=== PATIENT | male | born 1985 | race Caucasian/White ===

== ENCOUNTER → 2016-11-13 | Outpatient (CLI) | payer OTHER ==
--- NOTE | 2016-11-13 11:01 | KCIC ---
INDICATION: Left-sided low back pain, worsening in the last few months. TECHNIQUE: Sagittal T1, sagittal T2, sagittal STIR, axial T1, and axial T2 sequences are provided. Comparison is made to radiographs from April 24, 2009. FINDINGS: There is no malalignment. There is no marrow edema. There is no worrisome marrow lesion. There is disc desiccation which is mild at what is considered L5-S1 and between the S1 and S2 segments. Patient again appears to have transitional type anatomy. For the purposes of today's study, transitional vertebral body is considered a partially lumbarized S1 segment with rudimentary disc at S1-S2. Conus medullaris is therefore considered to terminate at the inferior endplate of L1. This numbering system also assumes 5 lumbar type vertebral bodies. Degenerative findings by individual level are as follows: T12-L1 through L3-L4: There is no canal or foraminal compromise. L4-L5: Minimal disc bulge and facet hypertrophy are noted with minimal foraminal narrowing. L5-S1: There is a disc osteophyte complex and facet hypertrophy with mild foraminal narrowing. IMPRESSION: 1. Mild degenerative disc disease and facet hypertrophy without any canal stenosis. There is mild foraminal narrowing at L5-S1. 2. Transitional type anatomy, was considered a partially lumbarized S1 segment for the purposes of today's exam. Electronically signed by: Josias Valverde MD (11/13/2016 10:57 AM) [facility]
== END | disposition home or self-care (01) ==
LOC: KCIC MRI 10:07
PROVIDERS: ATTEND Physician Assistant Medical
DX: M51.36 Other intervertebral disc degeneration, lumbar region (principal)
CPT/HCPCS: 72148

== ENCOUNTER → 2016-11-29 | Outpatient (CLI) | payer OTHER ==
[~2016-11-29] MED LIST: CYCL5TAB PO; FINA5TAB4 PO; IOHEXOL 180 MG/ML 10 ML VIAL. ONE; methylPREDNISolone ACETATE 40 MG/ML VIAL. ONE; methylPREDNISolone ACETATE 80 MG/ML VIAL. ONE
--- NOTE | 2016-11-29 16:14 | PAIN ---
DATE OF SERVICE: 11/29/2016 INITIAL CONSULTATION FOR PAIN CLINIC DATE OF SERVICE: 11/29/2016 CHIEF COMPLAINT: Low back and left lower extremity pain. HISTORY OF PRESENT ILLNESS: This is a 31-year-old male who presents with history of pain across the low back and left gluteus and thigh for about 2 years on and off, getting worse with time gradually. The patient reports it is constantly sharp, shooting, changes during the day, worse in the morning, but better as he gets up and moves around, but then worse at night again. It has been disturbing his sleep 2-3 times at night, it has not affected his bowel or bladder control or his ability to walk, not using any assistive devices. The patient had some trigger point injections in 10/2016, which helped initially for a few days and exercise seemed to help as well. He is doing this as well as some inversion table therapy on his own at home. The patient has been taking some cyclobenzaprine, which helps as well, but does cause some drowsiness. The patient reports his disability rating from 0-10 with 10 being the worst, as 7 with family and home responsibilities and occupation and life support activities, 6 with recreation and self-care, 3 with social activity, 0 with sexual behavior. The patient did have MRI scan of the lumbar spine showing mild degenerative disk disease and facet hypertrophy without any canal stenosis, minimal mild foraminal narrowing at L5-S1, L4-L5 shows minimal disk bulging as well with some facet hypertrophy also. The patient reports pain is worse with standing and walking, better with sitting, better with riding in a car, also better with lying down. PAST MEDICAL HISTORY: Significant for only right knee surgery. Otherwise, the patient has been in very good health. No significant health history otherwise. CURRENT MEDICATIONS: Include cyclobenzaprine and finasteride. ALLERGIES: The patient has no known drug allergies. FAMILY HISTORY: Significant for hypertension only. SOCIAL HISTORY: The patient does not smoke. 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 REVIEW OF SYSTEMS: The patient's review of systems is positive for those items mentioned in history of present illness. All systems reviewed and otherwise negative. It is complete, full and well documented on the patient's chart. PHYSICAL EXAMINATION: VITAL SIGNS: Today, blood pressure 129/83, pulse 66, respirations 16, temperature 97.7 degrees Fahrenheit, height 6 feet 2 inches, weighs 230 pounds. GENERAL: The patient is awake, alert, oriented, appropriate, very pleasant demeanor. HEENT: Head shows normocephalic, atraumatic. Extraocular movements are intact and symmetrical. Oral cavity, mucous membranes are moist and pink. Dentition is intact. NECK: Shows anterior throat supple without palpable lymphadenopathy noted. Swallow reflex is symmetrical. CHEST: Shows normal on inspection. Breath sounds are clear to auscultation bilaterally. HEART: Shows S1 and S2 clear. ABDOMEN: Soft, nontender, nondistended. No palpable organomegaly. No rebound or guarding demonstrated. BACK: Shows spine grossly midline. Normal appearing thoracic kyphosis, lumbar lordotic curvature and cervical lordotic curvature. The patient's lumbar paraspinous muscle shows symmetrical on inspection with palpation shows only very mild tenderness with deep palpation in the lower lumbar distribution, slightly more on the left than the right, but without atrophy, hypertrophy, no trigger points, no radiation of pain, no tenderness over the spinous processes, sacrum or sacroiliac regions. The patient has full rotational motion both laterally greater than 10 degrees right and left as well as extension greater than 10 degrees, forward flexion 45 degrees without pain reported. Lower extremities show deep tendon reflexes 2+ in the patellar and 1+ tendo calcaneus tendons are symmetrical. Motor exam is strong with 5/5 dorsiflexion, extension, quadriceps and hamstring flexion. Peripheral pulses are 2+ posterior tibial and dorsalis pedis pulses. No peripheral edema is noted. No clubbing, no cyanosis. Lower extremities are warm and dry to touch, equal in color and appearance. Straight leg raise is negative for reproduction of radicular symptoms as is Gaenslen and Cipriano maneuvers are negative bilaterally. The patient is able to stand, stand on his toes without difficulty or loss of balance, is walking with a normal appearing gait, not using any assistive devices. IMPRESSION: 1. This is a 31-year-old male with about a 2-year history of increasing pain in low back, into the left gluteus and posterior aspect of the upper thigh. 2. MRI scan of lumbar spine as noted. 3. Previous knee surgery. PLAN: Options were discussed with the patient including conservative medical management, physical therapy, interventional techniques and he would like to pursue interventional techniques. We discussed a lumbar epidural steroid injection using description as well as anatomical models to describe the procedure. Risks were then discussed including, but not limited to bleeding, infection, possibility of epidural hematoma and subsequent neurologic compromise, dural puncture, headaches, spinal cord and/or nerve damage, side effects of steroid medications and poor results regarding pain control. The patient understands and wishes to proceed. The patient will return to clinic in approximately 2 weeks for followup. He was counseled on return appointment, activity level and side effects to be aware of. DIAGNOSIS: Lumbar radiculopathy with lumbar degenerative disk disease. PROCEDURE: Lumbar epidural steroid injection in translaminar approach at the L5-S1 level using C-arm fluoroscopic guidance under sterile prep and drape using local anesthetic. Medication injected a total of 120 mg Depo-Medrol plus 10 mL preservative-free normal saline and 2 mL Isovue for contrast. CONDITION AT DISCHARGE: Stable. The patient tolerated procedure well and had no complications. JESS CHANEL MD DR: PATRICIA/kori JOB#: [id number] / [id number] KATIE Villafuerte MD
== END | disposition home or self-care (01) ==
LOC: PNCL 07:36
PROVIDERS: ATTEND Anesthesiology
DX: M51.16 Intervertebral disc disorders with radiculopathy, lumbar region (principal)
CPT/HCPCS: 62323; J1030; J1040

== ENCOUNTER → 2016-12-13 | Outpatient (CLI) | payer OTHER ==
--- NOTE | 2016-12-13 10:32 | PN ---
DATE: 12/13/2016 PROGRESS NOTE FOR PAIN CLINIC DIAGNOSES: Lumbar radiculopathy with lumbar degenerative disk disease. HISTORY OF PRESENT ILLNESS: The patient is a 31-year-old male who returns for followup status post lumbar epidural steroid injection x 1. The patient reports approximately 50% improvement overall in his low back and left lower extremity pain. Reports the pain is still present, but did very well until about the last 4-5 days, it has been increasing again, near to baseline, but not quite to baseline. The patient reports the pain is an 8 on a scale of 10, average about 6 and is currently a 3. The patient reports it is a sharp, shooting, radiating, constant pain in low back and bilateral lower extremities, mostly on the left side posterior gluteus and posterior thigh, but some in the right posterior gluteus as well, but only intermittently. The patient reports it does not wake him up from sleep very often, maybe once in the past month. He sleeps about 5-6 hours at a time without difficulty. No new motor or sensory deficits. The patient reports no bowel or bladder incontinence or other complaints. PHYSICAL EXAMINATION: VITAL SIGNS: The patient's blood pressure is 135/80, pulse 63, respirations are 16 and temperature 98.0 degrees Fahrenheit. Weight is 221 pounds. GENERAL: The patient is awake, alert, oriented, appropriate, very pleasant demeanor. HEENT: Exam shows normocephalic, atraumatic. Extraocular movements are intact and symmetrical. Oral cavity, mucous membranes are moist and pink. Dentition is intact. NECK: Shows anterior throat supple, without palpable lymphadenopathy noted. Swallow reflex is symmetrical. CHEST: Shows normal on inspection. Breath sounds clear to auscultation bilaterally. HEART: Shows S1 and S2 clear. ABDOMEN: Soft, nontender and nondistended. No palpable organomegaly is noted. No rebound or guarding demonstrated. BACK: Shows spine grossly midline. Normal-appearing thoracic kyphosis and lumbar lordotic curvature. Lumbar paraspinous musculature shows symmetrical on inspection. On palpation, it shows some moderate tenderness with palpation bilaterally, but only diffusely without atrophy or hypertrophy, without radiation. No tenderness over the sacrum or sacroiliac regions. LOWER EXTREMITIES: Show deep tendon reflexes at 2+ in the patellar, 1+ tendo-calcaneus tendons are equal. Motor exam is strong with 5/5 dorsiflexion, extension, quadriceps and hamstring flexion. Peripheral pulses are 2+ posterior tibial and no edema. Options were discussed with the patient. The patient's old chart was reviewed as his current medication regimen updated. Current review of systems updated today as well and we will proceed with a second in the series of lumbar epidural steroid injection with fluoroscopic guidance. Risks were again discussed including, but not limited to, bleeding, infection, possibility of epidural hematoma, subsequent neurologic compromise, dural puncture, headaches, spinal cord and/or nerve damage, side effects of steroid medication and poor results regarding pain control. The patient understands and wishes to proceed. The patient will return to clinic in approximately 2 weeks for followup, was counseled on return appointment, activity level and side effects to be aware of. DIAGNOSES: Lumbar radiculopathy with lumbar degenerative disk disease. PROCEDURE: Lumbar epidural steroid injection in translaminar approach at the L5-S1 level using C-arm fluoroscopic guidance under sterile prep and drape using local anesthetic. MEDICATION INJECTED: A total of 120 mg Depo-Medrol plus 10 mL of preservative-free normal saline and 2 mL of Isovue for contrast. CONDITION AT DISCHARGE: Stable. The patient tolerated the procedure well, had no complications. JESS CHANEL MD DR: PATRICIA/kori JOB#: [id number] / [id number]
== END | disposition home or self-care (01) ==
LOC: PNCL 08:51
PROVIDERS: ATTEND Anesthesiology
DX: M51.16 Intervertebral disc disorders with radiculopathy, lumbar region (principal)
CPT/HCPCS: 62323; J1030; J1040

== ENCOUNTER → 2017-02-18 | Outpatient (CLI) | payer OTHER ==
[~2017-02-18] MED LIST changes: -IOHEXOL 180 MG/ML 10 ML VIAL. ONE; -methylPREDNISolone ACETATE 40 MG/ML VIAL. ONE; -methylPREDNISolone ACETATE 80 MG/ML VIAL. ONE
--- NOTE | 2017-02-18 08:58 | PAIN ---
DATE OF SERVICE: 02/18/2017 DATE OF SERVICE: 02/18/2017 DIAGNOSES: Lumbar spondylosis and lumbosacral spondylosis with lumbar degenerative disk disease. HISTORY OF PRESENT ILLNESS: The patient is a 31-year-old male who returns for followup status post lumbar epidural steroid injections x 2 with about 50% improvement, but only short lived for about 2 weeks. The patient reports the pain has become more just in his back, more limited to his back. He has recently had a myelogram as well as CT scan with followup showing mild degenerative disk disease with mild foraminal narrowing at L5-S1 and transitional vertebrae at a partially lumbarized S1 as well with anterolisthesis at S1-S2 with the supine position. Left sided pseudoarthrosis to the sacrum as well, bilateral S1 pars defects at the same level with moderately bilaterally, severe facet arthropathy, moderate right foraminal narrowing, mild degenerative retrolisthesis at L5-S1 can lead to moderate bilateral foraminal narrowing exaggerated due to mild facet arthropathy and a [id number] compression of the bilateral L5 nerve roots within the foramina. The patient reports still significant pain, slightly worse on the left than the right, but present bilaterally in the low back itself without significant radiation into the gluteus or posterior thighs at this time. The patient reports it is a stabbing, aching, sharp pain that can be worse with activity, standing, walking, changing positions, waking her from sleep occasionally, but not every night, better with lying down, generally worse with sitting, standing, walking, changing positions, bending forward. Extension of the spine causes the pain to be much more noticeable especially on the left. The patient reports pain as a 9 on a scale of 10 at its worst, is an 8 on average, 4 at its least, and is a 5 today. The patient reports it is mostly dull and stabbing this morning. PHYSICAL EXAMINATION: VITAL SIGNS: Today, the patient's blood pressure is 128/71, pulse 63, respirations 18, temperature is 97.8 degrees Fahrenheit. Weight is 222 pounds. GENERAL: The patient is awake, alert, oriented, appropriate, very pleasant demeanor. HEENT: Head shows normocephalic, atraumatic. Extraocular movements are intact and symmetrical. Oral cavity, mucous membranes are moist and pink. Dentition is intact. NECK: Shows anterior throat supple without palpable lymphadenopathy noted. Swallow reflex is symmetrical. CHEST: Shows normal on inspection. Breath sounds clear to auscultation bilaterally. HEART: Shows S1 and S2 clear. No murmurs auscultated. ABDOMEN: Soft, nontender, nondistended. No palpable organomegaly is noted. No rebound or guarding demonstrated. BACK: Shows spine grossly in midline. Normal appearing thoracic kyphosis and lumbar lordotic curvature. No previous bruises, lesions, rashes or scars are noted. Lumbar paraspinous musculature shows symmetrical on inspection, with palpation, there is some mild tenderness with palpation in the lower lumbar distribution only diffusely, slightly more on the left than the right. No tenderness over the sacrum or sacroiliac regions, however, the patient has good rotational motion both laterally as well as extension and flexion with some tenderness reported with extension in the low back itself, more on the left side, but present bilaterally, is better with forward flexion. Right and left lateral rotation shows mild tenderness bilaterally at 10 degrees rotation. LOWER EXTREMITIES: Show deep tendon reflexes 2+ in the patellar, 1+ tendo-calcaneus tendons are equal. Motor exam is strong with 5/5 dorsiflexion, extension, quadriceps and hamstring flexion. No peripheral edema is noted. Peripheral pulses are 1+ in the posterior tibial distribution. PLAN: Options were discussed with the patient and the patient's old chart was reviewed as his current medication regimen updated. Current review of systems updated today as well. We will preauthorize the patient for bilateral facet joint injections at the L5-S1 and S1-S2 levels as he has transitional anatomy with anterolisthesis and pars defect at these levels. Significant pain in the low back itself, worse with extension and rotation. The patient would like to proceed, wait for preauthorization. The patient will maintain activity level in the meantime, stretching and strengthening exercises, also light impact aerobics such as walking, bicycling, treadmill. JESS CHANEL MD DR: PATRICIA/kori JOB#: [id number] / [id number]
== END | disposition home or self-care (01) ==
LOC: PNCL 07:24
PROVIDERS: ATTEND Anesthesiology
DX: M47.817 Spondylosis without myelopathy or radiculopathy, lumbosacral region (principal); M51.36 Other intervertebral disc degeneration, lumbar region
CPT/HCPCS: 99212

== ENCOUNTER → 2017-03-04 | Outpatient (CLI) | payer OTHER ==
[~2017-03-04] MED LIST changes: +BUPIVACAINE MPF 0.25% 10 ML VIAL. ONE; +IOHEXOL 180 MG/ML 10 ML VIAL. ONE; +methylPREDNISolone ACETATE 40 MG/ML VIAL. ONE; +methylPREDNISolone ACETATE 80 MG/ML VIAL. ONE
--- NOTE | 2017-03-04 10:28 | PAIN ---
DATE OF SERVICE: 03/04/2017 DIAGNOSES: Lumbar radiculopathy with lumbar degenerative disk disease, and lumbar and lumbosacral spondylosis. HISTORY OF PRESENT ILLNESS: The patient is a 31-year-old male who returns for followup status post lumbar epidural steroid injections x 2. The patient reports about 50% improvement with the injections, but still significant pain in the low back itself. The patient had waited for preauthorization with his insurance provider for facet joint injections, returns today for that procedure. He describes the pain across the low back bilaterally, slightly worse on the left than the right, but present bilaterally, worse with activity, standing, walking, changing positions, bending, stooping, lying down. It has been awaking him from sleep at night about every 4-5 hours. The patient reports it is an 8 on a scale 10 at its worst, 7 at its average and a 4 at its least, and is a 5 today. The patient reports aching, sharp, shooting, constant pain across the low back, again slightly worse on the left than the right, worse with rotation, extension and flexion. No new motor or sensory deficits, no new bowel or bladder incontinence noted. PHYSICAL EXAMINATION: VITAL SIGNS: Today, the patient's blood pressure is 132/69, pulse 72, respirations are 18, temperature 97.7 degrees Fahrenheit, height is 6 feet 2 inches, weight is 221 pounds. GENERAL: The patient is awake, alert, oriented, appropriate, very pleasant demeanor. HEENT: Head shows normocephalic, atraumatic. Extraocular movements are intact, symmetrical. Oral cavity: Mucous membranes moist and pink. Dentition is intact. NECK: Shows anterior throat supple without palpable lymphadenopathy noted. Swallow reflex symmetrical. CHEST: Shows normal with inspection. Breath sounds clear to auscultation bilaterally. HEART: Shows S1, S2 clear. No murmurs auscultated. ABDOMEN: Soft, nontender, nondistended. No palpable organomegaly. There is no rebound or guarding demonstrated. BACK: Shows spine grossly in the midline. Lumbar paraspinous muscle shows symmetrical on inspection, with palpation shows some moderate tenderness in the low lumbar distribution diffusely bilaterally without radiation and without trigger points. The patient has good rotational motion with some pain reported with far left rotation past 10 degrees as well as right rotation, extension greater than 10 degrees, shows pain bilaterally, again worse on the left than the right. Forward flexion shows no significant tenderness. EXTREMITIES: Lower extremities show deep tendon reflexes at 2+ in the patella, 1+ tendo calcaneus tendons. Motor exam is strong with 5/5 dorsiflexion, extension, quadriceps and hamstring flexion and symmetrical and equal. Peripheral pulses are 2+ posterior tibial. No peripheral edema is noted. Options were discussed with the patient. The patient's old chart was reviewed. His current medication regimen updated. Current review of systems updated today as well. We will proceed with bilateral L4-L5 and L5-S1 facet joint injections with fluoroscopic guidance. Risks were again discussed including, but not limited to bleeding, infection, possibility of epidural hematoma, subsequent neurologic compromise, dural puncture headaches, spinal cord and/or nerve damage, side effects of steroid medication and poor results regarding pain control. The patient understands and wishes to proceed. The patient will return to clinic in approximately 2 weeks for followup. He was counseled to return appointment, activity level and side effects to be aware of. DIAGNOSIS: Lumbar and lumbosacral spondylosis. PROCEDURE: Bilateral L4-L5 and L5-S1 lumbar facet joint injections with fluoroscopic guidance under sterile prep and drape using local anesthetic. MEDICATION INJECTED: A total of 120 mg of Depo-Medrol plus 4 mL of 0.25% bupivacaine and 2 mL Isovue for contrast. CONDITION AT DISCHARGE: Stable. The patient tolerated the procedure well, had no complications. JESS CHANEL MD DR: PATRICIA/kori JOB#: [id number] / [id number]
== END | disposition home or self-care (01) ==
LOC: PNCL 08:49
PROVIDERS: ATTEND Anesthesiology
DX: M47.817 Spondylosis without myelopathy or radiculopathy, lumbosacral region (principal)
CPT/HCPCS: 64493; 64494; J1030; J1040; J3490; 64490; 64491; 64492

== ENCOUNTER → 2017-12-11 | Outpatient (CLI) | payer OTHER ==
[~2017-12-11] MED LIST changes: -BUPIVACAINE MPF 0.25% 10 ML VIAL. ONE; -IOHEXOL 180 MG/ML 10 ML VIAL. ONE; -methylPREDNISolone ACETATE 40 MG/ML VIAL. ONE; -methylPREDNISolone ACETATE 80 MG/ML VIAL. ONE
--- NOTE | 2017-12-11 12:03 | KCIC ---
Complete abdominal ultrasound dated 12/11/2017. No comparison available. Clinical data indication: Epigastric pain and nausea. FINDINGS: Liver appears somewhat enlarged and is of diffuse increased echogenicity. No focal hepatic mass. Intrahepatic and extrahepatic biliary tree normal in caliber. The common bile duct measures 2 mm. The gallbladder normal in size and echogenicity. No gallbladder wall thickening or pericholecystic fluid. No gallstones are seen. Right kidney measures 12.8 cm in length. Left kidney measures 12.1cm in length. No hydronephrosis. Spleen is homogeneous in echogenicity and measures 12.8 cms longitudinal dimension. Limited visualized portions of pancreas aorta and IVC unremarkable. No significant ascites. IMPRESSION: 1. No acute sonographic abnormality. 2. Hepatomegaly and mild hepatic steatosis. Electronically signed by: Rylan Kulkarni MD (12/11/2017 12:00 PM) [facility]
== END | disposition home or self-care (01) ==
LOC: KCIC US 09:38
PROVIDERS: ATTEND Internal Medicine Gastroenterology
DX: K76.0 Fatty (change of) liver, not elsewhere classified (principal); R16.0 Hepatomegaly, not elsewhere classified
CPT/HCPCS: 76700

== ENCOUNTER 2018-06-12 06:29 | Day surgery (SDC) | payer OTHER ==
[~2018-06-12] VITALS: Ht 190.5 cm; Wt 102.1 kg
[2018-06-12] MEDS ORDERED: ONDANSETRON PF 4 MG/2 ML VIAL. IV PRN (07:00)
[2018-06-12] MEDS ORDERED: PROCHLORPERAZINE 10 MG/2 ML VIAL. IV PRN (07:00)
[2018-06-12] MEDS ORDERED: IV RINGERS,LACTATED 1000ML 1,000 ML IV SCH (07:00)
[2018-06-12] MEDS ORDERED: MORPHINE SULFATE 2 MG/ML VIAL. IV PRN (07:00)
[2018-06-12] MEDS ORDERED: HYDROmorphone 2 MG/ML VIAL IV PRN (07:00)
[2018-06-12] MEDS ORDERED: fentaNYL PF VIAL 100 MCG/2 ML VIAL IV PRN (07:00)
[2018-06-12] MEDS ORDERED: GELATIN SPONGE SIZE 12-7MM SPONGE. ONE (07:12)
[2018-06-12] MEDS ORDERED: BUPIVAC MPF-EPI 0.5%-1:200000 30 ML VIAL. ONE (07:12)
[2018-06-12] MEDS ORDERED: fentaNYL PF VIAL 100 MCG/2 ML VIAL ONE (07:23)
[2018-06-12] MEDS ORDERED: MIDAZOLAM HCL/PF 2 MG/2 ML VIAL. ONE (07:23)
[2018-06-12] MEDS ORDERED: ROCURONIUM 50 MG/5 ML VIAL. ONE (07:23)
[2018-06-12] MEDS ORDERED: GLYCOPYRROLATE 1 MG/5 ML VIAL. ONE (07:24)
[2018-06-12] MEDS ORDERED: DESFLURANE 31 TO 60 MINUTES IH ONE ×2 (07:24)
[2018-06-12] MEDS ORDERED: PROPOFOL 20 ML IV ONE (07:24)
[2018-06-12] MEDS ORDERED: FAMOTIDINE 20 MG/2 ML VIAL ONE (07:24)
[2018-06-12] MEDS ORDERED: NEOSTIGMINE 10 MG/10 ML VIAL. ONE (07:24)
[2018-06-12] MEDS ORDERED: LIDOCAINE 2% PF 5 ML VIAL. ONE (07:24)
[2018-06-12] MEDS ORDERED: ONDANSETRON PF 4 MG/2 ML VIAL. ONE (07:24)
[2018-06-12] MEDS ORDERED: REMIFENTANIL 1 MG VIAL. IV ONE (07:26)
[2018-06-12] MEDS ORDERED: GELATIN SPONGE SIZE 12-7MM SPONGE. TP ONE (07:30)
[2018-06-12] MEDS ORDERED: METHYLENE BLUE 1% 10 ML VIAL. ONE (08:00)
[2018-06-12] MEDS ORDERED: KETOROLAC 30 MG/ML INJ FOR OR. INJ ONE (08:05)
[2018-06-12] MEDS ORDERED: NEOMY/BACITR/POLYMYXIN OINT PACKET. TP ONE (08:19)
--- NOTE | 2018-06-12 08:51 | PDOC ---
BRIEF OPERATIVE NOTE Date: Jun 12, 2018 Pre-Op Diagnosis pilonidal cyst Post-Op Diagnosis same Procedure Performed excision cyst and sinus tract Surgeon Rakesh Anesthesia Type: General Blood Loss 10cc IV Fluid 700cc Specimens Obtained pilonidal cyst, sinus tract Findings tract from acute area toward the anus, connected to the puncta Complications none Operative Note Wk # [id number] JAY JAY MCFARLAND MD Jun 12, 2018 08:51
[2018-06-12] MEDS: fentaNYL PF VIAL 100 MCG/2 ML VIAL IV PRN ×2 (08:52→09:07)
--- NOTE | 2018-06-12 09:06 | DISCH ---
DISCHARGE INSTRUCTIONS Condition on Discharge Condition on Discharge: Stable Activity After Discharge Activity Instructions for Disc: Activity as tolerated, Avoid exertion Lifting Instructions after Dis: No heavy lifting Driving Instructions after Dis: Do not drive today Diet after Discharge Diet after Discharge: Regular Wound Incision Care Wound/Incision Care: Ice to area for comfort Other wound/incision instructi: mary shower Friday Follow-Up Follow up with: Rakesh 06/22 JAY JAY MCFARLAND MD Jun 12, 2018 09:06
[2018-06-12] MEDS ORDERED: OXYC1TAB15 PO ×2 (09:11→09:13)
[2018-06-12] MEDS ORDERED: SENN1TAB70 PO ×2 (09:12→09:14)
[2018-06-12] MEDS ORDERED: oxyCODONE/APAP 5/325 1 TAB TABLET ONE (09:40)
[2018-06-12 09:45] VITALS: BP 106/54
[2018-06-12] MEDS ORDERED: oxyCODONE/APAP 5/325 1 TAB TABLET PO ONE (09:45)
--- NOTE | 2018-06-12 11:03 | OP ---
DATE OF SURGERY: 06/12/2018 PREOPERATIVE DIAGNOSIS: Pilonidal cyst. POSTOPERATIVE DIAGNOSES: Pilonidal cyst with sinus tract. PROCEDURE: Excision of cyst and sinus tract. SURGEON: Jay Jay Mcfarland MD ANESTHESIA: General endotracheal. ESTIMATED BLOOD LOSS: 10. INTRAVENOUS FLUIDS: 700. INDICATIONS: The patient is a 32-year-old with pain, swelling and drainage from an area in the supragluteal cleft midline, approximately 2.5-3 cm from the puncta that reside in the midline. He is here for excision. DESCRIPTION OF PROCEDURE: The patient was brought to the operating suite, given a general endotracheal anesthetic and placed in the prone position. A 0.5% Marcaine with epinephrine was infiltrated circumferentially around the process. A probe was gently placed in the previously draining wound, and it fell easily toward the anus to the level of the puncta. The probe removed. The process injected through the opening with some methylene blue. An elliptical skin incision was then made around the draining source and the puncta. With cautery dissection, the process was removed en bloc. The wound was cultured. Irrigated and checked for hemostasis. When present and a correct sponge count was obtained, the wound was closed with interrupted vertical mattress stitches of 2-0 nylon, some 5-0 nylon in the superficial skin. Dressed with antibiotic ointment, Xeroform, 4 x 4s and mesh pants. The patient was taken out of the prone position, awakened from his anesthetic and taken to the recovery room in satisfactory condition. JAY JAY MCFARLAND MD DR: HANK/kori JOB#: [id number] / [id number]
--- NOTE | 2018-06-15 14:13 | PATHOLOGY ---
[facility] Accession Number: [id number] . 01 Material submitted: . PILONIDAL CYST AND TRACT . 01 Clinical history: . Pilonidal cyst without abscess . 02 Diagnosis: Skin and subcutaneous tissue, supragluteal cleft mass excision: - Pilonidal sinus showing acute and chronic inflammation. ([facility] 06/15/2018) QTP/06/15/2018 . 02 Electronically signed: . Balwinder Andre MD, Pathologist NPI- [id number] . 01 Gross description: . The specimen is received in formalin, labeled "Kobe Arevalo, pilonidal cyst and tract", is an unoriented ellipse of almanza skin measuring 7.0 x 0.7 cm with underlying yellow lobulated subcutaneous tissue excised to a depth of 2.7 cm. The specimen is serially sectioned to show a sinus tract measuring 6.5 cm in length by 0.5 x 0.4 cm. [employer] tissue is submitted in A1-A2. ([facility]; 06/12/2018) [facility] . 02 Pathologist provided ICD-10: L05.91 . 02 CPT . 107901 Specimen Comment: A courtesy copy of this report has been sent to Specimen Comment: [phone], . Specimen Comment: Report sent to / DR MARTINEZ Performed at: 01 [facility] [address] [facility] [address], [place] [id number] MD Kamran Lilly MD Phone: [phone] Performed at: 02 [facility] [address] [place], [place] [id number] MD Balwinder Andre MD Phone: [phone]
== END 2018-06-12 09:45 | disposition home or self-care (01) ==
LOC: SURG 06:29
PROVIDERS: ATTEND Surgery
DX: L05.91 Pilonidal cyst without abscess (principal); F98.8 Other specified behavioral and emotional disorders with onset usually occurring in childhood and adolescence; Z98.890 Other specified postprocedural states; Z87.891 Personal history of nicotine dependence; Z72.89 Other problems related to lifestyle; Z79.899 Other long term (current) drug therapy
CPT/HCPCS: 11770; 87071; 87075; 88305; A7015; J0696; J1885; J2001; J2250; J2405; J2704; J2710; J3010; J3490; Q9968; A4461